=== PATIENT | male | born 1970 | race African-American/Black ===

== ENCOUNTER 2018-02-18 17:44 | Inpatient (IN) ==
--- NOTE | 2018-02-18 18:27 | ED ---
HPI General Chief Complaint: Neuro Symptoms/Deficit Stated Complaint: no strength on L side Time Seen by Provider: 02/18/18 18:17 Source: patient Mode of arrival: wheelchair Limitations: no limitations History of Present Illness Onset (ago): hour(s) (noon) Location: Reports left face, left arm and left leg History of same: No Severity: mild Quality: Reports weak Relieving factors: none Exacerbating factors: none Context: Reports sudden onset On Anticoagulants: No Associated symptoms: Reports denies other symptoms; Denies confusion, headaches and vertigo Treatments Prior to Arrival: Reports none Related Data Home Medications Medication Instructions Recorded Confirmed No Known Home Medications 02/18/18 02/18/18 Allergies Allergy/AdvReac Type Severity Reaction Status Date / Time No Known Allergies Allergy Uncoded 02/17/16 08:32 Review of Systems ROS: all other systems reviewed are negative [facility] Medical History Medical History Diabetes (Acute) Hypertension (Chronic) Exam Const General: cooperative, healthy appearing and comfortable Orientation: alert, awake and oriented x3 HENMT Head: normal to inspection, normocephalic and atraumatic Eyes Alignment and Position: alignment normal Conjunctivae: conjunctivae normal Sclera: sclerae normal EOM: EOM intact bilaterally Neck Neck: normal visual inspection, no lymphadenopathy and no meningeal signs Chest Chest: normal inspection of the chest Resp Effort & Inspection: normal respiratory effort and able to speak in complete sentences Auscultation: clear to auscultation bilaterally Cardio Rate: regular rate Rhythm: regular rhythm Back/Spine/Pelvis Cervical Spine: cervical ROM normal Thoracic/Lumbar Spine: thoraco-lumbar ROM normal Skin General: no rashes or lesions noted, turgor normal and dry skin Neuro General: alert, awake and oriented x3 Cranial Nerves: PERRL, EOM intact bilaterally, no nystagmus, individual cranial nerve findings and other (Mild left-sided facial weakness. Tongue deviates to the left.) Cognition: normal cognition Speech: speech normal Motor: other (Muscle strength in the left upper extremity is 4/5. Muscle strength in the left lower extremity is 4/5.) Extrem General: normal to inspection and full ROM Psych Appearance: grossly normal Mental Status: mental status grossly normal Speech and Movement: speech and movement normal Mood: congruent mood Affect: normal affect Attitude: cooperative Thought Process: normal Thought Content: normal Judgment: judgment good Course Consultations Consultation #1: Dr. Moon will admit Time: 21:32 Initial Documented Vital Signs Pulse Oximetry 97 02/18/18 18:24 Last Documented Vital Signs Temperature 99.1 F 02/18/18 18:26 Pulse Rate 69 02/18/18 18:26 Respiratory Rate 19 02/18/18 18:26 Blood Pressure 197/96 H 02/18/18 18:26 Pulse Oximetry 96 02/18/18 18:26 Critical Care Time Critical Care Time: Yes Total Critical Care Time: 30 Attestation: Time to perform other separately billable procedures was not included in the critical care time. My time did not include minutes spent treating any other patients simultaneously or on activities that did not directly contribute to the patient's treatment. The services I provided to this patient were to treat and/or prevent clinically significant deterioration due to acute stroke I provided critical care services requiring my management, as noted below: Chart data review, documentation time, medication orders and management, vital sign assessments/reviewing monitor data, ordering and reviewing lab tests, ordering and interpreting/reviewing x-rays and diagnostic studies, care of the patient and discussion of the patient with the admitting physicians NIH Stroke Scale NIHSS Time Completed NIHSS Time Completed: 18:18 NIH Stroke Scale Level of Consciousness: 0-Alert Orientation Questions: 0-Answers both correct Responds to Commands: 0-Both tasks correct Gaze Eye Movement: 0-Horizontal movement WNL Visual Waite: 0-No visual field defect Facial Movement: 1-Minor facial palsy Motor Functions Arm LEFT: 1-Drift before 10 seconds Motor Functions Arm RIGHT: 0-No drift Motor Functions Leg LEFT: 1-Drift before 5 seconds Motor Functions Leg RIGHT: 0-No drift Limb Ataxia: 0-No ataxia Sensory Loss: 0-No sensory loss Best Language: 0-Normal Articulation: 0-Normal Extinction or Inattention Sensory: 0-Absent Total: 3 Medical Decision Making MDM Narrative Medical decision making narrative: This patient has a history of hypertension. He had the onset of left-sided weakness at about noon today. He states that the onset was within a few minutes of noon. His exam is compatible with a CVA with left hemiparesis. He is outside of the window for a stroke alert. I have ordered a CT of his head, CTA of his head and CTA of his neck. He is not outside of the window for IR. Medical Screen Exam Complete: Yes Emergency Medical Condition: Yes Differential Diagnosis Differential Diagnosis: Differential diagnosis includes but is not limited to TIA, CVA, brain tumor, migraine, anxiety Lab Data Lab results reviewed: Yes I reviewed the patient's lab results. Result diagrams: 02/18/18 18:28 02/18/18 18:28 Lab Results 02/18/18 02/18/18 02/18/18 Range/Units 18:22 18:28 18:28 WBC 7.8 (4.0-11.0) th/mm3 RBC 5.99 H (4.50-5.90) mil/mm3 Hgb 16.8 (13.0-17.0) gm/dL Hct 49.5 (39.0-51.0) % MCV 82.5 (80.0-100.0) fL MCH 28.1 (27.0-34.0) pg MCHC 34.0 (32.0-36.0) % RDW 14.6 (11.6-17.2) % Plt Count 199 (150-450) th/mm3 MPV 10.2 (7.0-11.0) fL Prelim Diff (Auto) Slide review pending Neut % (Auto) 53.0 (16.0-70.0) % Lymph % (Auto) 36.5 (9.0-44.0) % Amite % (Auto) 7.3 (0.0-8.0) % Eos % (Auto) 2.4 (0.0-4.0) % Baso % (Auto) 0.8 (0.0-2.0) % Neut # (Auto) 4.1 (1.8-7.7) th/mm3 Lymph # (Auto) 2.8 (1.0-4.8) th/mm3 Amite # (Auto) 0.6 (0.0-0.9) th/mm3 Eos # (Auto) 0.2 (0.0-0.4) th/mm3 Baso # (Auto) 0.1 (0.0-0.2) th/mm3 WBC Differential . Diff Scan Auto diff confirmed Differential Comment . Platelet Estimate Normal (Normal) Platelet Morphology Normal (Normal) RBC Morphology Normal (Normal) PT 10.6 (9.8-11.6) sec INR 1.0 Ratio APTT 20.8 L (24.3-30.1) sec Sodium (136-145) meq/L Potassium (3.5-5.1) meq/L Chloride (98-107) meq/L Carbon Dioxide (21.0-32.0) meq/L Anion Gap (5-15) meq/L BUN (7-18) mg/dL Creatinine (0.60-1.30) mg/dL Estimated GFR (>89) mL/min POC Glucose 246 H (68-110) mg/dl Random Glucose (74-106) mg/dL Calcium (8.5-10.1) mg/dL Total Creatine Kinase (39-308) U/L CK-MB (CK-2) (0.5-3.6) ng/mL CK-MB (CK-2) % (0.0-4.0) % Troponin I (0.02-0.05) ng/mL 02/18/18 Range/Units 18:28 WBC (4.0-11.0) th/mm3 RBC (4.50-5.90) mil/mm3 Hgb (13.0-17.0) gm/dL Hct (39.0-51.0) % MCV (80.0-100.0) fL MCH (27.0-34.0) pg MCHC (32.0-36.0) % RDW (11.6-17.2) % Plt Count (150-450) th/mm3 MPV (7.0-11.0) fL Prelim Diff (Auto) Neut % (Auto) (16.0-70.0) % Lymph % (Auto) (9.0-44.0) % Amite % (Auto) (0.0-8.0) % Eos % (Auto) (0.0-4.0) % Baso % (Auto) (0.0-2.0) % Neut # (Auto) (1.8-7.7) th/mm3 Lymph # (Auto) (1.0-4.8) th/mm3 Amite # (Auto) (0.0-0.9) th/mm3 Eos # (Auto) (0.0-0.4) th/mm3 Baso # (Auto) (0.0-0.2) th/mm3 WBC Differential Diff Scan Differential Comment Platelet Estimate (Normal) Platelet Morphology (Normal) RBC Morphology (Normal) PT (9.8-11.6) sec INR Ratio APTT (24.3-30.1) sec Sodium 136 (136-145) meq/L Potassium 4.6 (3.5-5.1) meq/L Chloride 103 (98-107) meq/L Carbon Dioxide 28.8 (21.0-32.0) meq/L Anion Gap 4 L (5-15) meq/L BUN 19 H (7-18) mg/dL Creatinine 1.84 H (0.60-1.30) mg/dL Estimated GFR 48 L (>89) mL/min POC Glucose (68-110) mg/dl Random Glucose 254 H (74-106) mg/dL Calcium 9.4 (8.5-10.1) mg/dL Total Creatine Kinase 462 H (39-308) U/L CK-MB (CK-2) 3.5 (0.5-3.6) ng/mL CK-MB (CK-2) % 0.8 (0.0-4.0) % Troponin I 0.12 H (0.02-0.05) ng/mL Imaging Data Radiologist's impression: Head CTA 02/18/18 18:17 CONCLUSION: 1. Mild atherosclerotic irregularity in the left M1 and M2 segments of the middle cerebral artery. 2. 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 3. Intracranial vessels are otherwise patent without aneurysmal disease. Neck CTA 02/18/18 18:17 CONCLUSION: Negative exam. Cervical and arch vessels are all widely patent with no significant atherosclerotic disease. Head CT 02/18/18 18:18 CONCLUSION: 1. No acute intracranial abnormality. . ECG Data EKG Prior to Arrival: No Attestation: I personally reviewed and interpreted this ECG as follows: (Shows a sinus rhythm with a rate of 76. No acute STT wave changes.) Discharge Plan Discharge Disposition Patient Disposition: 30 Still Patient Discharge Details Diagnosis: Stroke Physicians Team ED Provider: Lucila Mcdonnell Primary Care Provider: Primary Care Heather Oropeza Rxs /Orders / Referrals /Forms Prescriptions: No Action No Known Home Medications RF: 0 Discharge Interventions Interventions: Vital Signs Last Done: 02/18/18 18:26 Status ED Status: With Doctor
[2018-02-18 18:54] LABS: Baso # (Auto) 0.1 th/mm3 (0.0-0.2); Baso % (Auto) 0.8 % (0.0-2.0); Eos # (Auto) 0.2 th/mm3 (0.0-0.4); Eos % (Auto) 2.4 % (0.0-4.0); Hematocrit 49.5 % (39.0-51.0); Hemoglobin 16.8 gm/dL (13.0-17.0); Lymph # (Auto) 2.8 th/mm3 (1.0-4.8); Lymph % (Auto) 36.5 % (9.0-44.0); Mean Corpuscular Hemoglobin 28.1 pg (27.0-34.0); Mean Corpuscular Volume 82.5 fL (80.0-100.0); Mean Platelet Volume 10.2 fL (7.0-11.0); Mono # (Auto) 0.6 th/mm3 (0.0-0.9); Mono % (Auto) 7.3 % (0.0-8.0); Neut # (Auto) 4.1 th/mm3 (1.8-7.7); Platelet Count 199 th/mm3 (150-450); Red Blood Count 5.99 mil/mm3 (4.50-5.90); Red Cell Distribution Width 14.6 % (11.6-17.2); White Blood Count 7.8 th/mm3 (4.0-11.0)
[2018-02-18 19:17] LABS: Activated Partial Thrombo Time 20.8 sec (24.3-30.1); Prothrombin Time 10.6 sec (9.8-11.6)
[2018-02-18 19:23] LABS: Calcium 9.4 mg/dL (8.5-10.1); Platelet Estimate Normal (Normal); Platelet Morphology Normal (Normal); RBC Morphology Normal (Normal); Troponin I 0.12 ng/mL (0.02-0.05)
[2018-02-18 19:24] LABS: Carbon Dioxide 28.8 meq/L (21.0-32.0); Potassium 4.6 meq/L (3.5-5.1)
[2018-02-18 19:37] LABS: CKMB Percent 0.8 % (0.0-4.0); Creatine Kinase MB 3.5 ng/mL (0.5-3.6)
--- NOTE | 2018-02-18 20:45 | CT ---
EXAM DATE: 02/18/2018 8:36 PM EDT AGE/SEX: 47 years / Male INDICATIONS: Left sided weakness. CLINICAL DATA: This is the patient's initial encounter. Patient reports that signs and symptoms have been present for 1 day and indicates a pain score of 0/10. MEDICAL/SURGICAL HISTORY: Hypertension. Diabetes. None. RADIATION DOSE: 52.83 CTDI (mGy) COMPARISON: No prior exams available for comparison. TECHNIQUE: CT of the head without contrast. Using automated exposure control and adjustment of the mA and/or kV according to patient size, radiation dose was kept as low as reasonably achievable to ob tain optimal diagnostic quality images. DICOM format image data is available electronically for revi ew and comparison. FINDINGS: Cerebrum: The ventricles are normal for age. No evidence of midline shift, mass lesion, hemorrhage o r acute infarction. No extraaxial fluid collections are seen. Posterior Fossa: The cerebellum and brainstem are intact. The 4th ventricle is midline. The cerebe llopontine angle is unremarkable. Extracranial: The visualized portion of the orbits is intact. Skull: The calvaria is intact. No evidence of skull fracture. CONCLUSION: 1. No acute intracranial abnormality. . Electronically signed by: Ibrahima Redmond MD 02/18/2018 8:44 PM EDT
--- NOTE | 2018-02-18 20:56 | CT ---
EXAM DATE: 02/18/2018 8:47 PM EDT AGE/SEX: 47 years / Male INDICATIONS: Left sided weakness. CLINICAL DATA: This is the patient's initial encounter. Patient reports that signs and symptoms have been present for 1 day and indicates a pain score of 0/10. MEDICAL/SURGICAL HISTORY: Hypertension. Diabetes. None. RADIATION DOSE: 10.82 CTDI (mGy) ; Combined studies COMPAR[place]: [facility] [place], 02/18/2018. . TECHNIQUE: Volumetric scanning was performed using a multi-row detector CT scanner during bolus infu magdy of 49 ml Visipaque 320 (iodixanol) nonionic water-soluble contrast as a cumulative dose for mul tiple exams. The data was post processed with a variety of visualization algorithms including full volume maximum intensity projection, multi-planar sliding thin slab reformation, curved planar reform ation, and surface rendering techniques. Using automated exposure control and adjustment of the mA a nd/or kV according to patient size, radiation dose was kept as low as reasonably achievable to obtain optimal diagnostic quality images. DICOM format image data is available electronically for review a nd comparison. FINDINGS: There is excellent visualization of the major intracranial arteries out to the second-order branch ve ssels. There is some mild atherosclerotic irregularity of the left M1 and M2 segment with no signific ant stenosis. An approximate 50% stenosis is identified in the distal basilar artery. CONCLUSION: 1. Mild atherosclerotic irregularity in the left M1 and M2 segments of the middle cerebral artery. 2. 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 3. Intracranial vessels are otherwise patent without aneurysmal disease. Electronically signed by: Dougie Vasquez MD 02/18/2018 8:55 PM EDT
--- NOTE | 2018-02-18 21:04 | CT ---
EXAM DATE: 02/18/2018 9:00 PM EDT AGE/SEX: 47 years / Male INDICATIONS: Left sided weakness. CLINICAL DATA: This is the patient's initial encounter. Patient reports that signs and symptoms have been present for 1 day and indicates a pain score of 0/10. MEDICAL/SURGICAL HISTORY: Hypertension. Diabetes. None. RADIATION DOSE: 10.82 CTDI (mGy) ; Combined studies COMPARISON: No prior exams available for comparison. TECHNIQUE: Volumetric scanning was performed using a multirow detector CT scanner during bolus infus ion of 49 ml Visipaque 320 (iodixanol) nonionic water-soluble contrast as a cumulative dose for mult iple exams. The data was postprocessed with a variety of visualization algorithms including full-vo lume maximum intensity projection, multiplanar sliding thin-slab reformation, curved-planar reformati on, and surface-rendering techniques. Using automated exposure control and adjustment of the mA and/ or kV according to patient size, radiation dose was kept as low as reasonably achievable to obtain op timal diagnostic quality images. DICOM format image data is available electronically for review and comparison. Percent stenosis is calculated using the diameter of the stenotic region over the diameter of the nor mal distal internal carotid artery. FINDINGS: Aortic Arch: There is a three-vessel origin of the great vessels from the aorta. No evidence of ost ial narrowing Right Carotid: The common carotid artery is intact. The carotid bulb has a normal configuration wit hout ulceration or narrowing. The internal carotid artery lumen is smooth without stenosis. The ext ernal carotid artery is intact. Left Carotid: The common carotid artery is intact. The carotid bulb has a normal configuration with out ulceration or narrowing. The internal carotid artery lumen is smooth without stenosis. The exte rnal carotid artery is intact. Vertebrals: The vertebral arteries have a symmetric diameter. No stenotic lesions are seen. CONCLUSION: Negative exam. Cervical and arch vessels are all widely patent with no significant atherosclerotic di sease. Electronically signed by: Dougie Vasquez MD 02/18/2018 9:03 PM EDT
[2018-02-18] MEDS ORDERED: Dextrose 50% in Water 50 ML Vial IV.PUSH PRN (21:41)
--- NOTE | 2018-02-18 22:27 | MR ---
EXAM DATE: 02/18/2018 10:22 PM EDT AGE/SEX: 47 years / Male INDICATIONS: CVA. Left sided weakness in both arm and leg. CLINICAL DATA: This is the patient's initial encounter. Patient reports that signs and symptoms have been present for 1 day and indicates a pain score of 8/10. MEDICAL/SURGICAL HISTORY: Hypertension. Diabetes mellitus type II. None. COMPARISON: [facility] – [place], CTA HEAD W CONTRAST W 3D, 02/18/2018. . TECHNIQUE: Multiplanar, multisequence examination of the brain was performed without contrast. FINDINGS: Cerebrum: The ventricles are normal for age. No evidence of midline shift, mass lesion or hemorrhag e. There is a punctate area of increased T2 FLAIR signal intensity in the lateral aspect of the right thalamus. This same area shows true diffusion restriction. No extraaxial fluid collections are seen . The pituitary gland and suprasellar cistern are normal in configuration. White Matter: No significant signal abnormalities are seen in the white matter. Posterior Fossa: The cerebellum and brainstem are intact. The 4th ventricle is midline. The cerebel lopontine angle is unremarkable. The cerebellar tonsils are normal in position. Diffusion Imaging: Punctate area of diffusion restriction in the lateral aspect of the right thalamu s characteristic of an acute or subacute lacunar type infarct. Extracranial: The visualized portions of the orbits and paranasal sinuses are unremarkable. CONCLUSION: Acute or subacute lacunar type infarct in the lateral aspect of the right thalamus. Electronically signed by: Dougie Vasquez MD 02/18/2018 10:25 PM EDT
[2018-02-19] MEDS: Heparin - SQ 10,000 UNITS/ML Vial SQ SCH ×3 (00:14→22:56)
[2018-02-19 04:40] LABS: Amphetamine Screen,Urine Neg (Neg); Barbiturate Screen,Urine Neg (Neg); Cannabinoid Screen,Urine Neg (Neg); Cocaine Screen,Urine Neg (Neg)
[2018-02-19 04:41] LABS: Opiate Screen,Urine Neg (Neg)
--- NOTE | 2018-02-19 04:55 | P.HPIM ---
History of Present Illness Primary Care Physician: No Primary Care Physician History of Present Illness: 47-year-old male with history of hypertension, diabetes mellitus who presents with sudden onset left-sided weakness, slurred speech around noon on 02/18. Patient denies any other symptoms. Denies any chest pain, shortness of breath, nausea, vomiting, lightheadedness, dizziness. Patient denies any previous history of stroke. Denies any illicit drugs. Inpatient Certification: I certify that the inpatient services were ordered in accordance with Medicare regulations governing the order. This includes certification that hospital inpatient services are reasonable and necessary and in the case of services not specified as inpatient-only under 42 CFR 419.22(n), that they are appropriately provided as inpatient services in accordance to with the 2-midnight benchmark under 43 CFR 412.3(e) Estimated Total Length of Stay (Days): 3 Plans for Post Hospital Care: Not yet determined Review of Systems All other systems reviewed negative except as stated in HPI PMFSH - History History Provided By: Patient - Medical History Medical History: Medical History (Last Reviewed 02/19/18 @ 04:49 by Sotero Moon MD) Diabetes Hypertension - Family History Family History: Family History (Last Updated 02/19/18 @ 04:51 by Sotero Moon MD) Mother Hypotension Father Unknown cause of injury - Tobacco History Second Hand Smoke Exposure: No Smoking Status: Never smoker - Alcohol History How Often Do You Have a Drink Containing Alcohol: Never - Substance Use History Substance History: No History of Abuse - Travel History Recent Travel in the [place] Within the Last 8 Weeks: No Recent Travel Out of the Country Within the Last 8 Weeks: No - Immunization History Tetanus Immunization: >5 Years Hx Influenza Vaccine This Season: No Medications and Allergies Active Medications: Active Medications Aspirin (Aspirin Chew) 81 mg PO DAILY AZUL Dextrose (D50w Vial) 50 ml IV.PUSH UNSCH PRN PRN Reason: PER HYPOGLYCEMIA PROTOCOL Glucagon (Glucagon Inj) 1 mg OTHER UNSCH PRN PRN Reason: for Hypoglycemia Protocol Heparin Sodium (Porcine) (Heparin Inj) 5,000 units SQ Q12H [facility] Last Admin: 02/19/18 00:14 Dose: 5,000 units Insulin Aspart (Novolog Insulin Correctional Sugar Inj) 0 unit SQ ACHS AZUL; Protocol Pravastatin Sodium (Pravachol) 40 mg PO HS AZUL Sodium Chloride (Ns Flush) 2 ml IV.FLUSH BID AZUL Sodium Chloride (Ns Flush) 2 ml IV.FLUSH PRN PRN PRN Reason: FLUSH AFTER USING IV ACCESS Allergies Allergy/AdvReac Type Severity Reaction Status Date / Time No Known Allergies Allergy Uncoded 02/17/16 08:32 Home Medications Medication Instructions Recorded Confirmed Type lisinopril 20 mg PO BID 02/19/18 02/19/18 History metoprolol tartrate 100 mg PO DAILY 02/19/18 02/19/18 History Exam Vital signs: Vital Signs 02/18/18 18:24 02/18/18 18:26 02/18/18 21:40 Temperature 99.1 F Pulse Rate 69 64 Respiratory Rate 19 16 Blood Pressure 197/96 H 165/90 H Pulse Oximetry 97 96 98 02/18/18 23:50 02/19/18 00:03 02/19/18 00:28 Temperature 97.9 F Pulse Rate 71 70 Respiratory Rate 17 Blood Pressure 234/134 H 175/120 H Pulse Oximetry 98 02/19/18 00:30 Temperature Pulse Rate 75 Respiratory Rate Blood Pressure Pulse Oximetry Intake & Output 02/18/18 02/18/18 02/19/18 06:59 18:59 06:59 Weight 108.862 kg 108.862 kg Other: Date of Last Bowel Movement 02/18/18 Weight On Admission 108.826 kg Narrative: GENERAL: Patient lying in bed. Appears comfortable. Alert and oriented x3. GENERAL: SKIN: Warm and dry. HEAD: Atraumatic. Normocephalic. EYES: Pupils equal and round. No scleral icterus. No injection or drainage. ENT: No nasal bleeding or discharge. Mucous membranes pink and moist. NECK: Trachea midline. No JVD. CARDIOVASCULAR: Regular rate and rhythm. RESPIRATORY: No accessory muscle use. Clear to auscultation. Breath sounds equal bilaterally. GASTROINTESTINAL: Abdomen soft, non-tender, nondistended. Hepatic and splenic margins not palpable. MUSCULOSKELETAL: Extremities without clubbing, cyanosis, or edema. No obvious deformities. NEUROLOGICAL: Awake and alert. Patient with left-sided facial droop. Pupils equal round reactive to light and accommodation. Left upper extremity weakness with positive pronator drift. Left lower extremity weakness. PSYCHIATRIC: Appropriate mood and affect; insight and judgment normal. Results - Labs CBC & Chem 7: 02/18/18 18:28 02/18/18 18:28 Labs: Short CBC 02/18/18 Range/Units 18:28 WBC 7.8 (4.0-11.0) th/mm3 Hgb 16.8 (13.0-17.0) gm/dL Hct 49.5 (39.0-51.0) % Plt Count 199 (150-450) th/mm3 BMP 02/18/18 18:28 Sodium 136 Potassium 4.6 Chloride 103 Carbon Dioxide 28.8 BUN 19 H Creatinine 1.84 H Calcium 9.4 Cardiac Enzymes 02/18/18 02/18/18 02/19/18 Range/Units 18:28 21:38 01:27 Total Creatine Kinase 462 H (39-308) U/L CK-MB (CK-2) 3.5 (0.5-3.6) ng/mL Troponin I 0.12 H 0.11 H 0.11 H (0.02-0.05) ng/mL - Imaging Impressions Head MRI 02/18/18 00:00 CONCLUSION: Acute or subacute lacunar type infarct in the lateral aspect of the right thalamus. Head CTA 02/18/18 18:17 CONCLUSION: 1. Mild atherosclerotic irregularity in the left M1 and M2 segments of the middle cerebral artery. 2. 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 3. Intracranial vessels are otherwise patent without aneurysmal disease. Neck CTA 02/18/18 18:17 CONCLUSION: Negative exam. Cervical and arch vessels are all widely patent with no significant atherosclerotic disease. Head CT 02/18/18 18:18 CONCLUSION: 1. No acute intracranial abnormality. . Caprini VTE Risk Assessment Caprini VTE Risk Assessment: Moderate/High Risk (score >= 2) Caprini Risk Assessment Model: Point Value = 1 Point Value = 2 Point Value = 3 Point Value = 5 Age 41-60 Minor surgery BMI > 25 kg/m2 Swollen legs Varicose veins or History of unexplained or recurrent spontaneous Oral contraceptives or hormone replacement Sepsis (< 1 month) Serious lung disease, including pneumonia (< 1 month) Abnormal pulmonary function Acute myocardial infarction Congestive heart failure (< 1 month) History of inflammatory bowel disease Medical patient at bed rest Age 61-74 Arthroscopic surgery Major open surgery (> 45 min) Laparoscopic surgery (> 45 min) Malignancy Confined to bed (> 72 hours) Immobilizing plaster cast Central venous access Age >= 75 History of VTE Family history of VTE Factor V Leiden Prothrombin [id number] Lupus anticoagulant Anticardiolipin antibodies Elevated serum homocysteine Heparin-induced thrombocytopenia Other congenital or acquired thrombophilia Stroke (< 1 month) Elective arthroplasty Hip, pelvis, or leg fracture Acute spinal cord injury (< 1 month) Prophylaxis Regimen: Total Risk Factor Score Risk Level Prophylaxis Regimen 0-1 Low Early ambulation 2 Moderate Order ONE of the following: *Sequential Compression Device (SCD) *Heparin 5000 units SQ BID 3-4 Higher Order ONE of the following medications: *Heparin 5000 units SQ TID *Enoxaparin/Lovenox 40 mg SQ daily (WT < 150 kg, CrCl > 30 mL/min) *Enoxaparin/Lovenox 30 mg SQ daily (WT < 150 kg, CrCl > 10-29 mL/min) *Enoxaparin/Lovenox 30 mg SQ BID (WT < 150 kg, CrCl > 30 mL/min) AND/OR *Sequential Compression Device (SCD) 5 or more Highest Order ONE of the following medications: *Heparin 5000 units SQ TID (Preferred with Epidurals) *Enoxaparin/Lovenox 40 mg SQ daily (WT < 150 kg, CrCl > 30 mL/min) *Enoxaparin/Lovenox 30 mg SQ daily (WT < 150 kg, CrCl > 10-29 mL/min) *Enoxaparin/Lovenox 30 mg SQ BID (WT < 150 kg, CrCl > 30 mL/min) AND *Sequential Compression Device (SCD) Assessment and Plan - Plan Acute thalamic stroke. -As seen on MRI Neurochecks Daily aspirin Neurology consulted. Appreciate assistance Diabetes mellitus. Insulin sliding scale. Check A1c. Troponin elevation. Patient denies any chest pain. This is likely elevated at baseline. Discussed Condition With: patient, nurse, ED physician. H&P: Quality - VTE Deep Vein Thrombosis/Pulmonary Embolism Present on Admission: No
[2018-02-19 05:59] LABS: Chol/HDL Ratio 7.2 Ratio; HDL Cholesterol 35.4 mg/dL (40.0-60.0)
[2018-02-19] MEDS ORDERED: Influenza (Quadrivalent) Vaccine 0.5 ML Syringe IM ONE (08:00)
[2018-02-19] MEDS: Insulin NovoLOG Aspart Correctional Sugar Inj SQ SCH ×4 (08:54→22:55)
[2018-02-19] MEDS: Sod Chloride 0.9% Inj 1,000 ML IV.CONT SCH (10:28)
[2018-02-19] MEDS: amLODIPine 5 MG Tablet PO SCH (10:29)
--- NOTE | 2018-02-19 10:42 | P.PN ---
Subjective Interval history: Follow up for lacunar infarction, hypertension, DM. Patient is currently resting in bed. No acute concerns. His left sided weakness is much improved. No fever/chills. Physical Exam Vital signs: Vital Signs 02/18/18 18:24 02/18/18 18:26 02/18/18 21:40 Temperature 99.1 F Pulse Rate 69 64 Respiratory Rate 19 16 Blood Pressure 197/96 H 165/90 H Pulse Oximetry 97 96 98 02/18/18 23:50 02/19/18 00:03 02/19/18 00:28 Temperature 97.9 F Pulse Rate 71 70 Respiratory Rate 17 Blood Pressure 234/134 H 175/120 H Pulse Oximetry 98 02/19/18 00:30 02/19/18 04:00 02/19/18 08:00 Temperature 97.8 F 97.7 F Pulse Rate 75 70 73 Respiratory Rate 18 13 Blood Pressure 197/119 H 195/115 H Pulse Oximetry 96 98 Intake & Output 02/18/18 02/19/18 02/19/18 18:59 06:59 18:59 Weight 108.862 kg 109 kg Other: # Voids 1 Date of Last Bowel Movement 02/18/18 02/18/18 Weight On Admission 108.826 kg Narrative: GENERAL: alert, oriented x 3, NAD. SKIN: Warm and dry. HEAD: Normocephalic. EYES: No scleral icterus. No injection or drainage. NECK: Supple, trachea midline. No JVD or lymphadenopathy. CARDIOVASCULAR: Regular rate and rhythm without murmurs, gallops, or rubs. RESPIRATORY: Breath sounds equal bilaterally. No accessory muscle use. GASTROINTESTINAL: Abdomen soft, non-tender, nondistended. MUSCULOSKELETAL: No cyanosis, or edema. Left upper and lower ext mild weakness. BACK: Nontender without obvious deformity. No CVA tenderness. Results - Labs CBC & Chem 7: 02/18/18 18:28 02/18/18 18:28 Laboratory Results - last 24 hr 02/18/18 02/18/18 02/18/18 18:22 18:28 18:28 WBC 7.8 RBC 5.99 H Hgb 16.8 Hct 49.5 MCV 82.5 MCH 28.1 MCHC 34.0 RDW 14.6 Plt Count 199 MPV 10.2 Prelim Diff (Auto) Slide review pending Neut % (Auto) 53.0 Lymph % (Auto) 36.5 [place] % (Auto) 7.3 Eos % (Auto) 2.4 Baso % (Auto) 0.8 Neut # (Auto) 4.1 Lymph # (Auto) 2.8 [place] # (Auto) 0.6 Eos # (Auto) 0.2 Baso # (Auto) 0.1 WBC Differential . Diff Scan Auto diff confirmed Differential Comment . Platelet Estimate Normal Platelet Morphology Normal RBC Morphology Normal PT 10.6 INR 1.0 APTT 20.8 L Sodium Potassium Chloride Carbon Dioxide Anion Gap BUN Creatinine Estimated GFR POC Glucose 246 H Random Glucose Calcium Total Creatine Kinase CK-MB (CK-2) CK-MB (CK-2) % Troponin I Triglycerides Cholesterol LDL Cholesterol, Calc HDL Cholesterol Cholesterol/HDL Ratio Urine Opiates Screen Ur Barbiturates Screen Ur Amphetamines Screen U Benzodiazepines Scrn Urine Cocaine Screen U Cannabinoids Screen 02/18/18 02/18/18 02/18/18 18:28 21:38 23:47 WBC RBC Hgb Hct MCV MCH MCHC RDW Plt Count MPV Prelim Diff (Auto) Neut % (Auto) Lymph % (Auto) [place] % (Auto) Eos % (Auto) Baso % (Auto) Neut # (Auto) Lymph # (Auto) [place] # (Auto) Eos # (Auto) Baso # (Auto) WBC Differential Diff Scan Differential Comment Platelet Estimate Platelet Morphology RBC Morphology PT INR APTT Sodium 136 Potassium 4.6 Chloride 103 Carbon Dioxide 28.8 Anion Gap 4 L BUN 19 H Creatinine 1.84 H Estimated GFR 48 L POC Glucose 211 H Random Glucose 254 H Calcium 9.4 Total Creatine Kinase 462 H CK-MB (CK-2) 3.5 CK-MB (CK-2) % 0.8 Troponin I 0.12 H 0.11 H Triglycerides Cholesterol LDL Cholesterol, Calc HDL Cholesterol Cholesterol/HDL Ratio Urine Opiates Screen Ur Barbiturates Screen Ur Amphetamines Screen U Benzodiazepines Scrn Urine Cocaine Screen U Cannabinoids Screen 02/19/18 02/19/18 02/19/18 01:27 04:15 04:35 WBC RBC Hgb Hct MCV MCH MCHC RDW Plt Count MPV Prelim Diff (Auto) Neut % (Auto) Lymph % (Auto) [place] % (Auto) Eos % (Auto) Baso % (Auto) Neut # (Auto) Lymph # (Auto) [place] # (Auto) Eos # (Auto) Baso # (Auto) WBC Differential Diff Scan Differential Comment Platelet Estimate Platelet Morphology RBC Morphology PT INR APTT Sodium Potassium Chloride Carbon Dioxide Anion Gap BUN Creatinine Estimated GFR POC Glucose Random Glucose Calcium Total Creatine Kinase CK-MB (CK-2) CK-MB (CK-2) % Troponin I 0.11 H Triglycerides 221 H Cholesterol 255 H LDL Cholesterol, Calc 175 H HDL Cholesterol 35.4 L Cholesterol/HDL Ratio 7.20 Urine Opiates Screen Neg Ur Barbiturates Screen Neg Ur Amphetamines Screen Neg U Benzodiazepines Scrn Neg Urine Cocaine Screen Neg U Cannabinoids Screen Neg 02/19/18 08:10 WBC RBC Hgb Hct MCV MCH MCHC RDW Plt Count MPV Prelim Diff (Auto) Neut % (Auto) Lymph % (Auto) [place] % (Auto) Eos % (Auto) Baso % (Auto) Neut # (Auto) Lymph # (Auto) [place] # (Auto) Eos # (Auto) Baso # (Auto) WBC Differential Diff Scan Differential Comment Platelet Estimate Platelet Morphology RBC Morphology PT INR APTT Sodium Potassium Chloride Carbon Dioxide Anion Gap BUN Creatinine Estimated GFR POC Glucose 214 H Random Glucose Calcium Total Creatine Kinase CK-MB (CK-2) CK-MB (CK-2) % Troponin I Triglycerides Cholesterol LDL Cholesterol, Calc HDL Cholesterol Cholesterol/HDL Ratio Urine Opiates Screen Ur Barbiturates Screen Ur Amphetamines Screen U Benzodiazepines Scrn Urine Cocaine Screen U Cannabinoids Screen - Imaging Impressions Head MRI 02/18/18 00:00 CONCLUSION: Acute or subacute lacunar type infarct in the lateral aspect of the right thalamus. Head CTA 02/18/18 18:17 CONCLUSION: 1. Mild atherosclerotic irregularity in the left M1 and M2 segments of the middle cerebral artery. 2. 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 3. Intracranial vessels are otherwise patent without aneurysmal disease. Neck CTA 02/18/18 18:17 CONCLUSION: Negative exam. Cervical and arch vessels are all widely patent with no significant atherosclerotic disease. Head CT 02/18/18 18:18 CONCLUSION: 1. No acute intracranial abnormality. . - Procedures Echocardiogram 02/19/2018 Assessment and Plan - Plan Mr. Mora is a pleasant 47-year-old -Serbian gentleman with a history of hypertension, diabetes mellitus who was admitted to the hospital on 2017 due to sudden onset of left-sided weakness and slurred speech. Neurology was consulted for acute stroke. Acute lacunar stroke of the right thalamus -Appreciate neurology input. Patient is currently on aspirin 325 mg daily. -Continue permissive hypertension up to 220/110. -We will start amlodipine 5 mg due to blood pressure higher than 110 in the diastolic range. Uncontrolled hypertension -Patient will likely need multiple medications to control his blood pressure. Currently on amlodipine 5 mg p.o. daily. -We will consider losartan tomorrow. Diabetes mellitus -Continue NovoLog sliding scale insulin. -His creatinine is elevated to 1.86. If creatinine improves, we can consider restarting metformin upon discharge. -We will start low-dose Levemir tonight. Probable cardiomyopathy -Echocardiogram done today. Official report pending. Ejection fraction is likely in the 30-35% range. -We will consider adding carvedilol, diuretics including spironolactone. Full code. Heparin SQ.
--- NOTE | 2018-02-19 11:13 | MB ---
cc: Ede Gonzalez MD DATE: 02/19/2018 HISTORY OF PRESENT ILLNESS: A 47-year-old right-handed man with a history of hypertension, [id number] diabetes, hypercholesterolemia. He does not take an aspirin a day. 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 He seems to have improved somewhat since. Nothing on the face. He denied any chest pain, palpitations, or headache. Further review of systems: He denies any HI, stent, angioplasty, atrial fibrillation, Coumadin, renal, hepatic or pulmonary disease, thyroid disease, lupus, ulcer, cancer, seizure or stroke. SOCIAL HISTORY: Nonsmoker or drinker. No drugs. Lives with his . FAMILY HISTORY: Significant for stroke. MEDICATIONS AT HOME: He was on lisinopril at home 20 b.i.d. and metoprolol 100 a day. PHYSICAL EXAMINATION: VITAL SIGNS: Here his blood pressure has been running very high, 195/115, afebrile, 73/13, sinus rhythm. NECK: There are no carotid bruits. HEART: Regular rate and rhythm. I did not detect a murmur. GENERAL: He is moderately obese. NEUROLOGIC: Pupils are equal. Visual garcia full. Extraocular movements intact without nystagmus. There is just a hint of a left facial droop with normal sensation. Tongue was midline. There is a positive left drift. He has normal strength in right upper and bilateral lower extremities, but the left upper extremity is about a 4/5 in the triceps and a 3-/5 in the finger extensors. He has ataxia on the left [id number] and minimally on the left [id number]. No ataxia on the right side. Pinprick is intact throughout. DTRs are trace throughout. Toes are downgoing on the right, equivocal on the left. Speech is fluent. He is not aphasic. LABORATORY DATA: His LDL cholesterol is 175. His troponin is 0.11. His glucose 211. Urine drug screen negative. His CPK was 462. His creatinine is 1.84. Coagulation studies are normal. CBC normal. His CTA of the neck was negative. CT of the head showed about a 50% stenosis of the mid basilar artery. MRI of the brain shows an acute lacunar-type infarct in the right perithalamic region. IMPRESSION: Right likely lacunar infarct but will check an echocardiogram and Holter. Get some IV fluids going. I would keep his blood pressure about 180/100 for today and then we can slowly drop it down the next several days. Will keep his head of bed flat for today. He has got significant weakness, especially in the left arm. Will have physical therapy see him. Check some additional blood work. I counseled him on weight loss to get his blood pressure, cholesterol, and sugar down. We should also start him on a statin today and increase his aspirin to 325 and can recheck a troponin and get some IV fluids on him and recheck his BMP. I will check a hypercoagulable screen on him. MD JANETT Ball/patti , 10:04 AM , 10:11 AM
[2018-02-19 12:06] LABS: Free T4 (Free Thyroxine) 1.1 ng/dL (0.76-1.46); Thyroid Stimulating Hormone 0.925 uIU/mL (0.358-3.740)
--- NOTE | 2018-02-19 13:05 | ECHRPT ---
Indication: CVA/TIA CONCLUSIONS The left ventricular systolic function is pqrpheta-vb-ospvzln reduced with an estimated ejection fra ction in the range of 35-40%. Global hypokinesis. Wall thickness is normal. Normal left ventricular size. There is trace tricuspid valve regurgitation. The estimated pulmonary arterial pressure is 26.6 mmHg. BP: / HR: Rhythm: Sinus MEASUREMENTS (Male / Female) Normal Values Technical Quality:Difficult and limited secondary to body habitus 2D ECHO LV Diastolic Diameter PLAX 4.5 cm 4.2 - 5.9 / 3.9 - 5.3 cm LV Systolic Diameter PLAX 3.9 cm IVS Diastolic Thickness 1.1 cm 0.6 - 1.0 / 0.6 - 0.9 cm LVPW Diastolic Thickness 1.1 cm 0.6 - 1.0 / 0.6 - 0.9 cm LV Relative Wall Thickness 0.5 LVOT Diameter 2.2 cm M-MODE Aortic Root Diameter MM 3.0 cm LA Systolic Diameter MM 3.6 cm LA Ao Ratio MM 1.2 AV Cusp Separation MM 2.3 cm DOPPLER AV Peak Velocity 121.0 cm/s AV Peak Gradient 5.9 mmHg LVOT Peak Velocity 112.0 cm/s LVOT Peak Gradient 5.0 mmHg AV Area Cont Eq pk 3.5 cm Mitral E Point Velocity 75.0 cm/s Mitral A Point Velocity 90.3 cm/s Mitral E to A Ratio 0.8 LV E' Lateral Velocity 4.8 cm/s Mitral E to LV E' Lateral Ratio 15.7 LV E' Septal Velocity 4.2 cm/s Mitral E to LV E' Septal Ratio 17.9 TR Peak Velocity 204.0 cm/s TR Peak Gradient 16.6 mmHg Right Atrial Pressure 10.0 mmHg Pulmonary Artery Systolic Pressu 26.6 mmHg Right Ventricular Systolic Press 26.6 mmHg PV Peak Velocity 93.7 cm/s PV Peak Gradient 3.5 mmHg FINDINGS LEFT VENTRICLE The left ventricular systolic function is bbcktysz-mm-mahcvxz reduced with an estimated ejection fra ction in the range of 35-40%. Wall thickness is normal. Normal left ventricular size. RIGHT VENTRICLE Normal right ventricular size and systolic function. LEFT ATRIUM The left atrial size is normal. RIGHT ATRIUM The right atrial size is normal. ATRIAL SEPTUM Normal atrial septal thickness without atrial level shunting by limited color doppler interrogation. AORTA The aortic root and proximal ascending aorta are normal in size on limited imaging. MITRAL VALVE Structurally normal mitral valve. No mitral valve stenosis or regurgitation. AORTIC VALVE Trileaflet aortic valve. No aortic valve stenosis or regurgitation. TRICUSPID VALVE There is trace tricuspid valve regurgitation. The estimated pulmonary arterial pressure is 26.6 mmHg. PULMONARY VALVE No pulmonary valve regurgitation or stenosis. VESSELS The inferior vena cava is normal in size. PERICARDIUM No pericardial effusion. Erika Jo MD, FACC (Electronically Signed) Final Date:19 February 2018 13:04
[2018-02-19 14:07] LABS: Hemoglobin A1c 12.6 % (4.3-6.0)
[2018-02-19] MEDS ORDERED: Insulin Detemir Inj 1,000 UNIT/10 ML Vial SQ SCH (21:00)
--- NOTE | 2018-02-20 00:08 | ECG ---
Date Performed: 02/19/2018 Time Performed: 00:47:20 PTAGE: 47 years EKG: Sinus rhythm with 1st degree A-V block. Right axis deviation DOCTOR: Marlo Rivera Interpretating Date/Time 02/20/2018 00:07:28
--- NOTE | 2018-02-20 00:21 | ECG ---
Date Performed: 02/18/2018 Time Performed: 22:33:22 PTAGE: 47 years EKG: Sinus rhythm WITH FIRST DEGREE AV BLOCK NONSPECIFIC T-WAVE ABNORMALITY ABNORMAL ECG previous ECG 02/18/2018: Sinc e the PREVIOUS TRACING , no significant change noted DOCTOR: Marlo Rivera Interpretating Date/Time 02/20/2018 00:21:15
--- NOTE | 2018-02-20 00:31 | ECG ---
Date Performed: 02/18/2018 Time Performed: 18:39:22 PTAGE: 47 years EKG: Sinus rhythm POSSIBLE RIGHT VENTRICULAR HYPERTROPHY NONSPECIFIC ST & T-WAVE ABNORMALITY ABNORMAL ECG NO PREVIOUS TRACING DOCTOR: Marlo Rivera Interpretating Date/Time 02/20/2018 00:29:50
[2018-02-20] MEDS: Sod Chloride 0.9% Inj 1,000 ML IV.CONT SCH ×2 (07:38→08:17)
[2018-02-20 08:05] LABS: Carbon Dioxide 25.7 meq/L (21.0-32.0); Potassium 3.5 meq/L (3.5-5.1)
[2018-02-20] MEDS: Insulin NovoLOG Aspart Correctional Sugar Inj SQ SCH ×4 (09:07→21:34)
[2018-02-20] MEDS: amLODIPine 5 MG Tablet PO SCH (09:07)
[2018-02-20] MEDS: Heparin - SQ 10,000 UNITS/ML Vial SQ SCH ×2 (09:07→21:34)
--- NOTE | 2018-02-20 09:22 | P.PN ---
Subjective Interval history: Follow up for lacunar infarction, hypertension, DM. Patient is currently doing well. Sitting in his chair. Tolerating diet well. No acute concerns. Physical Exam Vital signs: Vital Signs 02/19/18 12:00 02/19/18 13:00 02/19/18 14:56 Temperature 98.1 F Pulse Rate 77 69 Respiratory Rate 12 Blood Pressure 218/126 H 199/118 H 182/104 H Pulse Oximetry 97 02/19/18 16:00 02/19/18 20:00 02/20/18 00:00 Temperature 98.7 F 98.8 F 97.3 F L Pulse Rate 72 75 80 Respiratory Rate 14 18 18 Blood Pressure 193/122 H 215/105 H 198/121 H Pulse Oximetry 97 99 95 02/20/18 03:00 02/20/18 04:00 02/20/18 08:00 Temperature 97.8 F 98.0 F Pulse Rate 89 85 Respiratory Rate 18 18 12 Blood Pressure 196/123 H 213/124 H Pulse Oximetry 96 98 Intake & Output 02/19/18 02/20/18 02/20/18 18:59 06:59 18:59 Intake Total 480 / 480 1000 / 1000 Output Total 1050 / 1050 850 / 850 Balance -570 / -570 150 / 150 Weight 109 kg Intake: IV 1000 / 1000 NS Inj 1,000 ML @ 70 mls/hr IV. 1000 / 1000 CONT .[id number] [facility] Rx#:[id number] Oral 480 / 480 Output: Urine 1050 / 1050 850 / 850 Other: Date of Last Bowel Movement 02/18/18 02/18/18 # Bowel Movements 0 Narrative: GENERAL: alert, oriented x 3, NAD. SKIN: Warm and dry. HEAD: Normocephalic. EYES: No scleral icterus. No injection or drainage. NECK: Supple, trachea midline. No JVD or lymphadenopathy. CARDIOVASCULAR: Regular rate and rhythm without murmurs, gallops, or rubs. RESPIRATORY: Breath sounds equal bilaterally. No accessory muscle use. GASTROINTESTINAL: Abdomen soft, non-tender, nondistended. MUSCULOSKELETAL: No cyanosis, or edema. Left upper ext mild weakness. BACK: Nontender without obvious deformity. No CVA tenderness. Results - Labs CBC & Chem 7: 02/18/18 18:28 02/20/18 06:14 Laboratory Results - last 24 hr 02/19/18 02/19/18 02/19/18 04:35 10:50 10:50 ESR 2 Sodium Potassium Chloride Carbon Dioxide Anion Gap BUN Creatinine Estimated GFR POC Glucose Random Glucose Hemoglobin A1c 12.6 H Calcium Vitamin B12 730 TSH 0.925 Free T4 1.10 02/19/18 02/19/18 02/19/18 11:06 17:11 22:49 ESR Sodium Potassium Chloride Carbon Dioxide Anion Gap BUN Creatinine Estimated GFR POC Glucose 197 H 199 H 168 H Random Glucose Hemoglobin A1c Calcium Vitamin B12 TSH Free T4 02/20/18 02/20/18 06:14 08:00 ESR Sodium 138 Potassium 3.5 D Chloride 103 Carbon Dioxide 25.7 Anion Gap 9 BUN 15 Creatinine 1.37 H Estimated GFR 68 L POC Glucose 229 H Random Glucose 221 H Hemoglobin A1c Calcium 8.0 L D Vitamin B12 TSH Free T4 - Procedures Echocardiogram 02/19/2018 Assessment and Plan - Plan Mr. Mora is a pleasant 47-year-old -Sammarinese gentleman with a history of hypertension, diabetes mellitus who was admitted to the hospital on 2017 due to sudden onset of left-sided weakness and slurred speech. Neurology was consulted for acute stroke. Acute lacunar stroke of the right thalamus -Appreciate neurology input. Patient is currently on aspirin 325 mg daily. -BP is high today as well. 184/111. -Lipitor 40mg QHS. Uncontrolled hypertension -Patient will likely need multiple medications to control his blood pressure. Currently on amlodipine 5 mg p.o. daily. -Will increase Amlodipine 10mg Qday and start Losartan 50mg Qday. Diabetes mellitus -Continue NovoLog sliding scale insulin. -HgbA1c 12.6. Increase levemir to 12 units QHS. Probable cardiomyopathy -Echocardiogram shows ==> Ejection fraction is likely in the 35-40% range. -We will start carvedilol 6.25mg BID. Full code. Heparin SQ.
[2018-02-20] MEDS ORDERED: amLODIPine 5 MG Tablet PO SCH (12:39)
[2018-02-20] MEDS ORDERED: Insulin Detemir Inj 1,000 UNIT/10 ML Vial SQ SCH (12:53)
[2018-02-20] MEDS ORDERED: Carvedilol 6.25 MG Tablet PO ONE (12:55)
--- NOTE | 2018-02-20 16:39 | P.PNNEU ---
Subjective Subjective Comments: sr Active Medications: Active Medications Amlodipine Besylate (Norvasc) 10 mg PO DAILY [facility] Aspirin (Ecotrin) 325 mg PO DAILY [facility] Last Admin: 02/20/18 09:07 Dose: 325 mg Atorvastatin Calcium (Lipitor) 40 mg PO HS [facility] Last Admin: 02/19/18 22:55 Dose: 40 mg Carvedilol (Coreg) 6.25 mg PO BID [facility] Dextrose (D50w Vial) 50 ml IV.PUSH UNSCH PRN PRN Reason: PER HYPOGLYCEMIA PROTOCOL Glucagon (Glucagon Inj) 1 mg OTHER UNSCH PRN PRN Reason: for Hypoglycemia Protocol Heparin Sodium (Porcine) (Heparin Inj) 5,000 units SQ Q12H [facility] Last Admin: 02/20/18 09:07 Dose: 5,000 units Insulin Aspart (Novolog Insulin Correctional Sugar Inj) 0 unit SQ ACHS [facility]; Protocol Last Admin: 02/20/18 12:18 Dose: 3 unit Insulin Detemir (Levemir Inj) 12 unit SQ HS [facility] Losartan Potassium (Cozaar) 50 mg PO DAILY [facility] Last Admin: 02/20/18 09:07 Dose: 50 mg Sodium Chloride (Ns Flush) 2 ml IV.FLUSH BID [facility] Last Admin: 02/20/18 09:08 Dose: Not Given Sodium Chloride (Ns Flush) 2 ml IV.FLUSH PRN PRN PRN Reason: FLUSH AFTER USING IV ACCESS Allergies/Adverse Reactions: Allergies Allergy/AdvReac Type Severity Reaction Status Date / Time No Known Allergies Allergy Uncoded 02/17/16 08:32 Physical Exam Vital signs: Vital Signs 02/19/18 20:00 02/20/18 00:00 02/20/18 03:00 Temperature 98.8 F 97.3 F L Pulse Rate 75 80 Respiratory Rate 18 18 18 Blood Pressure 215/105 H 198/121 H Pulse Oximetry 99 95 02/20/18 04:00 02/20/18 08:00 02/20/18 12:00 Temperature 97.8 F 98.0 F 98.8 F Pulse Rate 89 85 84 Respiratory Rate 18 12 12 Blood Pressure 196/123 H 213/124 H 191/116 H Pulse Oximetry 96 98 97 02/20/18 12:37 Temperature Pulse Rate 84 Respiratory Rate Blood Pressure 184/111 H Pulse Oximetry Intake & Output 02/19/18 02/20/18 02/20/18 18:59 06:59 18:59 Intake Total 480 / 480 1000 / 1000 Output Total 1050 / 1050 850 / 850 Balance -570 / -570 150 / 150 / Weight 109 kg Intake: IV 1000 / 1000 NS Inj 1,000 ML @ 70 mls/hr IV. 1000 / 1000 CONT .[id number] [facility] Rx#:[id number] Oral 480 / 480 Output: Urine 1050 / 1050 850 / 850 Other: Date of Last Bowel Movement 02/18/18 02/18/18 02/18/18 # Bowel Movements 0 Narrative: feels better lue 4+ lle 5 vff face sym Objective Laboratory Results - last 24 hr 02/19/18 02/19/18 02/20/18 17:11 22:49 06:14 Sodium 138 Potassium 3.5 D Chloride 103 Carbon Dioxide 25.7 Anion Gap 9 BUN 15 Creatinine 1.37 H Estimated GFR 68 L POC Glucose 199 H 168 H Random Glucose 221 H Calcium 8.0 L D 02/20/18 02/20/18 02/20/18 08:00 11:19 16:28 Sodium Potassium Chloride Carbon Dioxide Anion Gap BUN Creatinine Estimated GFR POC Glucose 229 H 247 H 164 H Random Glucose Calcium Review/Management - Review/Management Plan: imp r cva likley lacunar some intracranial disease in diff terrritories echo ef 35-40% have cards see ? stress test needed yper pend sr so far holter pend asa and statin when cards clears could dc needs major wt loss and close medical fu
[2018-02-20] MEDS: Carvedilol 6.25 MG Tablet PO SCH (21:24)
--- NOTE | 2018-02-21 07:25 | P.PNNEU ---
Subjective Medication List: sr Active Medications: Active Medications Amlodipine Besylate (Norvasc) 10 mg PO DAILY [facility] Aspirin (Ecotrin) 325 mg PO DAILY [facility] Last Admin: 02/20/18 09:07 Dose: 325 mg Atorvastatin Calcium (Lipitor) 40 mg PO HS [facility] Last Admin: 02/20/18 21:23 Dose: 40 mg Carvedilol (Coreg) 6.25 mg PO BID [facility] Last Admin: 02/20/18 21:24 Dose: 6.25 mg Dextrose (D50w Vial) 50 ml IV.PUSH UNSCH PRN PRN Reason: PER HYPOGLYCEMIA PROTOCOL Glucagon (Glucagon Inj) 1 mg OTHER UNSCH PRN PRN Reason: for Hypoglycemia Protocol Heparin Sodium (Porcine) (Heparin Inj) 5,000 units SQ Q12H [facility] Last Admin: 02/20/18 21:34 Dose: 5,000 units Insulin Aspart (Novolog Insulin Correctional Sugar Inj) 0 unit SQ ACHS [facility]; Protocol Last Admin: 02/20/18 21:34 Dose: 5 unit Insulin Detemir (Levemir Inj) 12 unit SQ HS [facility] Last Admin: 02/20/18 21:35 Dose: 12 unit Losartan Potassium (Cozaar) 50 mg PO DAILY [facility] Last Admin: 02/20/18 09:07 Dose: 50 mg Sodium Chloride (Ns Flush) 2 ml IV.FLUSH BID [facility] Last Admin: 02/20/18 21:24 Dose: 2 ml Sodium Chloride (Ns Flush) 2 ml IV.FLUSH PRN PRN PRN Reason: FLUSH AFTER USING IV ACCESS Allergies/Adverse Reactions: Allergies Allergy/AdvReac Type Severity Reaction Status Date / Time No Known Allergies Allergy Uncoded 02/17/16 08:32 Physical Exam Vital signs: Vital Signs 02/20/18 08:00 02/20/18 12:00 02/20/18 12:37 Temperature 98.0 F 98.8 F Pulse Rate 85 84 84 Respiratory Rate 12 12 Blood Pressure 213/124 H 191/116 H 184/111 H Pulse Oximetry 98 97 02/20/18 16:00 02/20/18 20:00 02/21/18 00:00 Temperature 98.6 F 98.2 F 97.2 F L Pulse Rate 86 78 78 Respiratory Rate 12 20 20 Blood Pressure 183/106 H 185/108 H 183/105 H Pulse Oximetry 98 98 97 02/21/18 04:00 Temperature 97.4 F L Pulse Rate 81 Respiratory Rate 20 Blood Pressure 184/112 H Pulse Oximetry 98 Intake & Output 02/20/18 02/21/18 02/21/18 18:59 06:59 18:59 Intake Total 1647 / 1647 720 / 720 Balance 1647 / 1647 720 / 720 Weight 136 kg Intake: IV 207 / 207 NS Inj 1,000 ML @ 70 mls/hr IV. 207 / 207 CONT .[id number] [facility] Rx#:[id number] Oral 1440 / 1440 720 / 720 Other: # Voids 2 4 Date of Last Bowel Movement 02/18/18 02/18/18 # Bowel Movements 0 Narrative: feels better lue 4+-5- lle 5 vff face sym Objective Laboratory Results - last 24 hr 02/20/18 02/20/18 02/20/18 06:14 08:00 11:19 Sodium 138 Potassium 3.5 D Chloride 103 Carbon Dioxide 25.7 Anion Gap 9 BUN 15 Creatinine 1.37 H Estimated GFR 68 L POC Glucose 229 H 247 H Random Glucose 221 H Calcium 8.0 L D 02/20/18 02/20/18 16:28 21:29 Sodium Potassium Chloride Carbon Dioxide Anion Gap BUN Creatinine Estimated GFR POC Glucose 164 H 274 H Random Glucose Calcium Review/Management - Review/Management Plan: imp r cva clark lacunar some intracranial disease in diff terrritories echo ef 35-40% have cards see ? 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
[2018-02-21] MEDS: Insulin NovoLOG Aspart Correctional Sugar Inj SQ SCH ×2 (08:17→12:00)
[2018-02-21] MEDS: Carvedilol 6.25 MG Tablet PO SCH (08:20)
[2018-02-21 09:05] VITALS: RESP 18
--- NOTE | 2018-02-21 09:09 | P.PN ---
Subjective Interval history: Follow up for lacunar infarction, hypertension, DM. Patient is currently doing well. Ambulating well. His left arm weakness is improving. No nausea vomiting , diarrhea. No chest pain, shortness of breath, fever or chills. Physical Exam Vital signs: Vital Signs 02/20/18 12:00 02/20/18 12:37 02/20/18 16:00 Temperature 98.8 F 98.6 F Pulse Rate 84 84 86 Respiratory Rate 12 12 Blood Pressure 191/116 H 184/111 H 183/106 H Pulse Oximetry 97 98 02/20/18 20:00 02/21/18 00:00 02/21/18 01:30 Temperature 98.2 F 97.2 F L Pulse Rate 78 78 Respiratory Rate 20 20 17 Blood Pressure 185/108 H 183/105 H Pulse Oximetry 98 97 02/21/18 04:00 02/21/18 08:00 Temperature 97.4 F L 97.6 F Pulse Rate 81 74 Respiratory Rate 20 18 Blood Pressure 184/112 H 169/106 H Pulse Oximetry 98 98 Intake & Output 02/20/18 02/21/18 02/21/18 18:59 06:59 18:59 Intake Total 1647 / 1647 720 / 720 Balance 1647 / 1647 720 / 720 Weight 136 kg Intake: IV 207 / 207 NS Inj 1,000 ML @ 70 mls/hr IV. 207 / 207 CONT .[id number] [facility] Rx#:[id number] Oral 1440 / 1440 720 / 720 Other: # Voids 2 4 Date of Last Bowel Movement 02/18/18 02/18/18 # Bowel Movements 0 Narrative: GENERAL: Alert, oriented x3, NAD. SKIN: Warm and dry. HEAD: Normocephalic. EYES: No scleral icterus. No injection or drainage. NECK: Supple, trachea midline. No JVD or lymphadenopathy. CARDIOVASCULAR: Regular rate and rhythm without murmurs, gallops, or rubs. RESPIRATORY: Breath sounds equal bilaterally. No accessory muscle use. GASTROINTESTINAL: Abdomen soft, non-tender, nondistended. MUSCULOSKELETAL: No cyanosis, or edema. Left upper extremity weakness 4 out of 5. BACK: Nontender without obvious deformity. No CVA tenderness. Results - Labs CBC & Chem 7: 02/18/18 18:28 02/20/18 06:14 Laboratory Results - last 24 hr 02/20/18 02/20/18 02/20/18 11:19 16:28 21:29 POC Glucose 247 H 164 H 274 H 02/21/18 08:13 POC Glucose 224 H - Procedures Echocardiogram 02/19/2018 Assessment and Plan - Plan Mr. Mora is a pleasant 47-year-old -[place] gentleman with a history of hypertension, diabetes mellitus who was admitted to the hospital on 2017 due to sudden onset of left-sided weakness and slurred speech. Neurology was consulted for acute stroke. Acute lacunar stroke of the right thalamus -Appreciate neurology input. Patient is currently on aspirin 325 mg daily. -BP is gradually improving. -Lipitor 40mg QHS. Uncontrolled hypertension -Will continue Amlodipine 10mg Qday and Losartan. Increase losartan to 100mg Qday. -Hydralazine 25mg Q8hrs for BP > 160 systolic. Diabetes mellitus -Continue NovoLog sliding scale insulin. -HgbA1c 12.6. Increase levemir to 15 units QHS. Probable cardiomyopathy -Echocardiogram shows ==> Ejection fraction is in the 35-40% range. -We will continue carvedilol 6.25mg BID as well as Losartan. Morbid obesity - BMI 43. Has diabetes mellitus. Full code. Heparin SQ. Discharge plan: Depending on cardiology recommendations. Possibly today.
[2018-02-21] MEDS: Heparin - SQ 10,000 UNITS/ML Vial SQ SCH (10:21)
[2018-02-21 12:52] VITALS: BP 172/109; TEMP 98.7; O2SAT 97
--- NOTE | 2018-02-21 13:12 | P.CONCA ---
History of Present Illness Primary Care Provider: No Primary Care Physician [facility] - History History Provided By: Patient - Medical History Medical History: Medical History (Last Reviewed 02/21/18 @ 08:04 by Rosalia Holt) Diabetes Hypertension - Family History Family History: Family History (Last Reviewed 02/21/18 @ 08:04 by Rosalia Holt) Mother Hypotension Father Unknown cause of injury - Tobacco History Second Hand Smoke Exposure: No Smoking Status: Never smoker - Alcohol History How Often Do You Have a Drink Containing Alcohol: Never - Substance Use History Substance History: No History of Abuse - Travel History Recent Travel in the [place] Within the Last 8 Weeks: No Recent Travel Out of the Country Within the Last 8 Weeks: No - Immunization History Tetanus Immunization: >5 Years Hx Influenza Vaccine This Season: No Medications and Allergies Active Medications: Active Medications Amlodipine Besylate (Norvasc) 10 mg PO DAILY [facility] Last Admin: 02/21/18 08:19 Dose: 10 mg Aspirin (Ecotrin) 325 mg PO DAILY [facility] Last Admin: 02/21/18 08:19 Dose: 325 mg Atorvastatin Calcium (Lipitor) 40 mg PO HS [facility] Last Admin: 02/20/18 21:23 Dose: 40 mg Carvedilol (Coreg) 12.5 mg PO BID [facility] Dextrose (D50w Vial) 50 ml IV.PUSH UNSCH PRN PRN Reason: PER HYPOGLYCEMIA PROTOCOL Glucagon (Glucagon Inj) 1 mg OTHER UNSCH PRN PRN Reason: for Hypoglycemia Protocol Heparin Sodium (Porcine) (Heparin Inj) 5,000 units SQ Q12H [facility] Last Admin: 02/21/18 10:21 Dose: 5,000 units Hydralazine HCl (Apresoline) 25 mg PO Q8HR [facility] Insulin Aspart (Novolog Insulin Correctional Sugar Inj) 0 unit SQ ACHS [facility]; Protocol Last Admin: 02/21/18 12:00 Dose: 3 unit Insulin Detemir (Levemir Inj) 12 unit SQ HS [facility] Last Admin: 02/20/18 21:35 Dose: 12 unit Losartan Potassium (Cozaar) 100 mg PO DAILY [facility] Sodium Chloride (Ns Flush) 2 ml IV.FLUSH BID [facility] Last Admin: 02/21/18 08:20 Dose: 2 ml Sodium Chloride (Ns Flush) 2 ml IV.FLUSH PRN PRN PRN Reason: FLUSH AFTER USING IV ACCESS Allergies Allergy/AdvReac Type Severity Reaction Status Date / Time No Known Allergies Allergy Uncoded 02/17/16 08:32 Home Medications Medication Instructions Recorded Confirmed Type lisinopril 20 mg PO BID 02/19/18 02/19/18 History metoprolol tartrate 100 mg PO DAILY 02/19/18 02/19/18 History Exam Vital signs: Vital Signs 02/20/18 16:00 02/20/18 20:00 02/21/18 00:00 Temperature 98.6 F 98.2 F 97.2 F L Pulse Rate 86 78 78 Respiratory Rate 12 20 20 Blood Pressure 183/106 H 185/108 H 183/105 H Pulse Oximetry 98 98 97 02/21/18 01:30 02/21/18 04:00 02/21/18 08:00 Temperature 97.4 F L 97.6 F Pulse Rate 81 74 Respiratory Rate 17 20 18 Blood Pressure 184/112 H 169/106 H Pulse Oximetry 98 98 02/21/18 08:30 02/21/18 12:00 Temperature 98.7 F Pulse Rate 80 76 Respiratory Rate 18 Blood Pressure 172/109 H Pulse Oximetry 97 Intake & Output 02/20/18 02/21/18 02/21/18 18:59 06:59 18:59 Intake Total 1647 / 1647 720 / 720 Balance 1647 / 1647 720 / 720 Weight 136 kg Intake: IV 207 / 207 NS Inj 1,000 ML @ 70 mls/hr IV. 207 / 207 CONT .[id number] [facility] Rx#:[id number] Oral 1440 / 1440 720 / 720 Other: # Voids 2 4 Date of Last Bowel Movement 02/18/18 02/18/18 02/21/18 # Bowel Movements 0 Results 02/18/18 18:28 02/20/18 06:14 Comprehensive Metabolic Panel 02/20/18 Range/Units 06:14 Sodium 138 (136-145) meq/L Potassium 3.5 D (3.5-5.1) meq/L Chloride 103 (98-107) meq/L Carbon Dioxide 25.7 (21.0-32.0) meq/L BUN 15 (7-18) mg/dL Creatinine 1.37 H (0.60-1.30) mg/dL Calcium 8.0 L D (8.5-10.1) mg/dL Intake and Output 02/20/18 02/21/18 02/21/18 22:59 06:59 14:59 Intake Total 1440 / 1440 720 / 720 Balance 1440 / 1440 720 / 720 Intake: Oral 1440 / 1440 720 / 720 Other: # Voids 2 4 Date of Last Bowel Movement 02/18/18 02/21/18 # Bowel Movements 0 Weight 136 kg Assessment and Plan - Plan New onset DICM EF 35-40% -continue ARB, and coreg (increased dose as goal BP now 140-160 per neurology) -plan for f/up appointment in 2 weeks and stress test as outpatient to evaluate for ischemic causes Stroke -continue ASA and statin
[2018-02-21] MEDS ORDERED: Carvedilol 12.5 MG Tablet PO SCH (13:15)
[2018-02-21] MEDS ORDERED: hydrALAZINE 25 MG Tablet PO SCH (14:00)
[2018-02-21 15:04] VITALS: PULSE 71
--- NOTE | 2018-02-22 15:31 | HM ---
Date Performed: 02/19/2018 Time Performed: 13:35:00 HOOKUP DATE: 02/19/18 01:35:00 PM Sat ANALYSIS START TIME: 02/19/2018 1:40:00 PM ANALYSIS END TIME: 02/20/2018 12:54:59 PM PATIENT AGE: 47 PATIENT HEIGHT PATIENT WEIGHT DRUG LIST PATIENT DIAGNOSIS: stroke TEST NARRATIVE: The patient's average heart rate was 79 BPM. Heart rates greater than 120 B PM were noted 2% of the time. No episodes of bradycardia were noted. No pauses exceeding 2.0 sec onds were noted. 376 ventricular ectopics, which represented < 1% of the total beat count, were n oted. The highest ventricular ectopic frequency occurred from 03:00 PM to 04:00 PM Sat. During this time 25 VE(s) occurred. Ventricular ectopics were observed as 374 isolated beat(s) and as 1 couplet (s). No runs were noted. No supraventricular ectopics were noted. No episodes of ST depressi on (defined as -1.0 mm or more) were noted in channel 1. No episodes of ST depression (defined as -1 .0 mm or more) were noted in channel 2. No episodes of ST depression (defined as -1.0 mm or more) we re noted in channel 3. TEST INTERPRETATION: The patient was monitored for 23hours 13mins . Patient has a normal rhythm with an average of 79bpm. Sinus Bradycardia rate of 55bpm, 374 PVC's and zero PAC's. Zero SVT's to 15 2bpm. Artfiact limtis accuracy of interpretation indeterminate This is probably sinus tachycardia but cannot rule out other forms of SVT. One ventricular couplet Clinical correlation is recommended Signed by : Angelo Saab
[2018-02-22 15:51] LABS: Homocysteine (Cardiovascular) 11.6 umol/L (<11.4)
[2018-02-23 13:53] LABS: Dil Russell Viper Venom Conf ( ND (NEGATIVE); Dil Russell Viper Venom Time M ND (CORRECTED); Lupus Anticoagulant PTT Screen 34 seconds (< OR = 40)
[2018-02-24 03:51] LABS: Activated Protein C Resistance 4.5 ratio (> OR = 2.1)
[2018-02-24 15:01] LABS: Factor V Leiden Mutation Negative (Negative); Protein C Antigen 80 % (70-150)
== END 2018-02-21 15:41 | disposition home or self-care (01) ==
LOC: NEPE 17:44 → NEDA 17:44 → N06 23:41
PROVIDERS: ADMIT Hospitalist; ATTEND Hospitalist